=== PATIENT | female | born 1985 | race Caucasian/White ===

== ENCOUNTER 2020-01-10 21:09 | Emergency (ER) | payer MEDICAID ==
[~2020-01-10] VITALS: Ht 170.2 cm; Wt 98.0 kg
[2020-01-10] MEDS ORDERED: LIDOCAINE-MPF 1%, 5ML ONE (21:22)
[2020-01-10] MEDS ORDERED: PLEASE ENTER ALLERGIES MC SCH (21:30)
[2020-01-10] MEDS ORDERED: LIDOCAINE-MPF 1%, 5ML INFIL ONE (21:30)
--- NOTE | 2020-01-10 22:46 | NUR ---
PATIENT RESTING IN BED, NO NOTED ACUTE DISTRESS. WILL CONTINUE TO MONITOR.
[2020-01-11 00:22] VITALS: BP 134/84
== END 2020-01-11 00:23 | disposition home or self-care (01) ==
LOC: ED 23:33
DX: S60.111A Contusion of right thumb with damage to nail, initial encounter (principal); S60.512A Abrasion of left hand, initial encounter; S60.511A Abrasion of right hand, initial encounter; G89.11 Acute pain due to trauma; M54.2 Cervicalgia; M79.642 Pain in left hand; M79.641 Pain in right hand; V47.1XXA Car passenger injured in collision with fixed or stationary object in nontraffic accident, initial encounter; Y93.89 Activity, other specified; Y92.488 Other paved roadways as the place of occurrence of the external cause; Y99.8 Other external cause status
CPT/HCPCS: 11740; 72125; 99284